=== PATIENT | female | born 1945 | race Two or more races ===

== ENCOUNTER 2023-03-24 15:23 | Inpatient (IN) | payer MEDICARE, OTHER ==
[~2023-03-24] VITALS: Ht 152.4 cm; Wt 62.6 kg
[~2023-03-24 15:23] MED LIST: ACET325T53 PO; APIX2.5T PO; ATOR40TA PO; BENZ200C53 PO; BISA10SU11 RC; CLOP75TA15 PO; CRAN425C6 PO; DOCU-141 PO; EXEN2AUT SQ; FAMO20TA8 PO; FURO-145 PO; GLIP5TAB13 PO; INSU100I26 SQ; INSU100I4 SQ; LOSA25TA27 PO; NATE60TA4 PO; NUT.237L28 PO; OMEG1CAP PO; SENN-261 PO
[2023-03-24] MEDS ORDERED: ONDANSETRON HCL/PF 4 MG/2 ML VIAL ONE (16:07)
[2023-03-24 16:15] LABS: BASOPHILS # (AUTO) 0.1 K/uL (0.0-0.2); BASOPHILS % (AUTO) 0.3 % (0.0-2.0); LYMPHOCYTES # (AUTO) 1.5 K/uL (0.8-4.8); LYMPHOCYTES % (AUTO) 7.5 % (20.0-44.0); MEAN CORPUSCULAR HEMOGLOBIN 18 PG (26.0-33.0); MEAN CORPUSCULAR HGB CONC 29 g/dl (31.0-36.0); MEAN CORPUSCULAR VOLUME 63 fL (82-100); MONOCYTES # (AUTO) 0.8 K/uL (0.1-1.30); NEUTROPHILS # (AUTO) 17.9 K/uL (1.8-8.9); NEUTROPHILS % (AUTO) 88.2 % (43.0-81.0); PLATELET COUNT (AUTO) 617 K/uL (150-450); RED BLOOD CELL COUNT(AUTO) 2.67 MIL/uL (4.0-5.2); RED CELL DISTRIBUTION WIDTH 20.7 % (11.5-15.0); WHITE BLOOD COUNT (AUTO) 20.3 K/uL (4.3-11.0)
[2023-03-24] MEDS ORDERED: IV NS 0.9% 1,000 ML BAG IV ONE (16:30)
[2023-03-24] MEDS ORDERED: ONDANSETRON HCL/PF - ER 4 MG/2 ML VIAL IV ONE (16:30)
[2023-03-24 16:35] LABS: CALCIUM, SERUM 8.9 mg/dL (8.5-10.1); CARBON DIOXIDE 22 mmol/L (21-32); CHLORIDE 98 mmol/L (98-107); CREATININE 2.5 mg/dL (0.6-1.3); GLUCOSE 297 mg/dL (74-106); POTASSIUM 4.8 mmol/L (3.5-5.1); SODIUM SERUM 132 mmol/L (136-145); UREA NITROGEN, BLOOD 41 mg/dL (7-18)
[2023-03-24 16:42] LABS: THYROID STIMULATING HORMONE 1.587 uIU/mL (0.358-3.74)
[2023-03-24 16:43] LABS: MAGNESIUM 2.4 mg/dL (1.8-2.4)
[2023-03-24 16:53] LABS: ALANINE AMINOTRANSFERASE 15 U/L (12-78); ALKALINE PHOSPHATASE 88 U/L (46-116); ASPARTATE AMINOTRANSFERASE 16 U/L (15-37); BILIRUBIN,DIRECT 0.2 mg/dL (0.0-0.2); BILIRUBIN,TOTAL 0.4 mg/dL (0.2-1.0); TOTAL PROTEIN, SERUM 8.4 g/dL (6.4-8.2)
[2023-03-24 17:01] LABS: INR 1.06 (0.91-1.10); PARTIAL THROMBOPLASTIN TIME 26.3 SEC (24.3-34.3); PROTHROMBIN TIME 11.2 SECS (9.2-11.1)
[2023-03-24 17:04] LABS: APPEARANCE,URINE CLOUDY (CLEAR); BILIRUBIN,URINE NEGATIVE (NEGATIVE); BLOOD, URINE 2+ Ery/uL (NEGATIVE); COLOR,URINE YELLOW (YELLOW); KETONES,URINE TRACE mg/dL (NEGATIVE); LEUKOCYTE ESTERASE ,URINE 2+ (NEGATIVE); NITRITE, URINE NEGATIVE (NEGATIVE); PROTEIN,URINE TRACE mg/dl (NEGATIVE); UGLUCOSE 3+ mg/dL (NEGATIVE); UROBILINOGEN,URINE 0.2 EU/dL (0.2)
[2023-03-24 17:07] LABS: HEMATOCRIT 17 % (33-45); HEMOGLOBIN 4.8 g/dL (11.5-14.8)
[2023-03-24] MEDS ORDERED: DICL100G26 TP (17:28)
[2023-03-24] MEDS ORDERED: METF-440 PO (17:28)
[2023-03-24] MEDS ORDERED: MIRT7.5T10 PO (17:28)
[2023-03-24] MEDS ORDERED: ESCI5TAB PO (17:28)
[2023-03-24] MEDS ORDERED: MELA3TAB41 PO (17:28)
[2023-03-24] MEDS ORDERED: NA P133E RC (17:28)
[2023-03-24] MEDS ORDERED: METO5TAB2 PO (17:28)
[2023-03-24] MEDS ORDERED: FERR325T23 PO (17:28)
[2023-03-24] MEDS ORDERED: EMPA10TA PO (17:28)
[2023-03-24] MEDS ORDERED: ASCO-340 PO (17:28)
[2023-03-24] MEDS ORDERED: ACET-2605 PO (17:28)
[2023-03-24] MEDS ORDERED: PANT40TA2 PO (17:28)
[2023-03-24] MEDS ORDERED: MAGN400O6 PO (17:28)
[2023-03-24] MEDS ORDERED: PHEN-704 PO (17:28)
[2023-03-24 17:53] LABS: ADD URINE CULTURE YES; BACTERIA,URINE 3+ /HPF (None Seen); RBC,URINE 21-50 /HPF (0-2); SQUAMOUS EPITHELIAL CELL,UR 0-2 /HPF (None Seen); WBC,URINE 21-50 /HPF (0-3)
[2023-03-24] MEDS ORDERED: ONDANSETRON HCL/PF 4 MG/2 ML VIAL IVP PRN (19:00)
[2023-03-24] MEDS ORDERED: ACETAMINOPHEN 650 MG/SUPP.RECT RC PRN (19:00)
[2023-03-24] MEDS ORDERED: CLONIDINE HCL 0.1 MG TABLET PO PRN (19:00)
[2023-03-24] MEDS ORDERED: MORPHINE SULFATE INJ 2 MG/ML DISP.SYRIN IV PRN (19:00)
[2023-03-24] MEDS ORDERED: DEXTROSE 50%-WATER 50 ML DISP.SYRIN IV PRN (19:00)
[2023-03-24 19:42] LABS: ANISOCYTOSIS 1+; EOSINOPHILS % (MANUAL) 3 % (0-4); LYMPHOCYTES % (MANUAL) 6 % (16-48); MONOCYTES % (MANUAL) 3 % (0-11.0); NEUTROPHILS % (MANUAL) 88 (42-76); PLATELET ESTIMATE ADEQUATE
[2023-03-24 19:43] LABS: ROULEAUX 1+
[2023-03-24] MEDS: CEFTRIAXONE 1 G in IV D5W 50 ML IV SCH (21:00)
[2023-03-24 21:30] VITALS: BP 110/44; TEMP 98.4; O2SAT 98
[2023-03-24] MEDS ORDERED: CEFTRIAXONE 1GM BAG (ER ONLY) 50 ML IV ONE (22:12)
[2023-03-24] MEDS: INSULIN REGULAR, HUMAN 100 UNIT/ML 3 ML VIAL SQ PRN (23:44)
[2023-03-24] MEDS: BLOOD SUGAR DIAGNOSTIC 1 EACH STRIP IN SCH (23:45)
[2023-03-25] VITALS (11 sets, daily range): BP systolic 94–135; BP diastolic 34–68; TEMP 97.5–99; O2SAT 97–99
[2023-03-25] MEDS: INSULIN REGULAR, HUMAN 100 UNIT/ML 3 ML VIAL SQ PRN ×4 (05:33→23:08)
[2023-03-25] MEDS: BLOOD SUGAR DIAGNOSTIC 1 EACH STRIP IN SCH ×4 (05:34→23:08)
[2023-03-25 06:55] LABS: BASOPHILS # (AUTO) 0.1 K/uL (0.0-0.2); BASOPHILS % (AUTO) 0.3 % (0.0-2.0); EOSINOPHILS # (AUTO) 0.1 K/uL (0.0-0.7); EOSINOPHILS % (AUTO) 0.9 % (0.0-6.0); HEMATOCRIT 23 % (33-45); LYMPHOCYTES # (AUTO) 1.8 K/uL (0.8-4.8); LYMPHOCYTES % (AUTO) 11.3 % (20.0-44.0); MEAN CORPUSCULAR HEMOGLOBIN 22 PG (26.0-33.0); MEAN CORPUSCULAR HGB CONC 31 g/dl (31.0-36.0); MEAN CORPUSCULAR VOLUME 72 fL (82-100); MONOCYTES # (AUTO) 1.3 K/uL (0.1-1.30); MONOCYTES % (AUTO) 7.8 % (2.0-12.0); NEUTROPHILS % (AUTO) 79.7 % (43.0-81.0); PLATELET COUNT (AUTO) 489 K/uL (150-450); RED BLOOD CELL COUNT(AUTO) 3.16 MIL/uL (4.0-5.2); RED CELL DISTRIBUTION WIDTH 29.4 % (11.5-15.0); WHITE BLOOD COUNT (AUTO) 16.3 K/uL (4.3-11.0)
[2023-03-25 07:04] LABS: CALCIUM, SERUM 8.2 mg/dL (8.5-10.1); CARBON DIOXIDE 25 mmol/L (21-32); CHLORIDE 103 mmol/L (98-107); CREATININE 2.2 mg/dL (0.6-1.3); GLUCOSE 157 mg/dL (74-106); POTASSIUM 4.1 mmol/L (3.5-5.1); SODIUM SERUM 138 mmol/L (136-145); UREA NITROGEN, BLOOD 43 mg/dL (7-18)
[2023-03-25] MEDS ORDERED: LOSARTAN POTASSIUM 25 MG TABLET PO SCH (09:00)
[2023-03-25] MEDS: PANTOPRAZOLE 40 MG VIAL IV SCH (09:12)
[2023-03-25] MEDS ORDERED: SOD FERRIC GLUC 125 MG in IV NS 0.9% 100 ML IV SCH (14:00)
[2023-03-25] MEDS: SOD FERRIC GLUC 125 MG in IV NS 0.9% 100 ML IV SCH (14:51)
[2023-03-25] MEDS: CEFTRIAXONE 1 G in IV D5W 50 ML IV SCH (21:23)
[2023-03-26] VITALS: BP 112/40; TEMP 97.5; O2SAT 96
[2023-03-26 04:00] VITALS: BP 108/40; TEMP 97.7; O2SAT 98
[2023-03-26] MEDS: INSULIN REGULAR, HUMAN 100 UNIT/ML 3 ML VIAL SQ PRN ×4 (05:17→23:40)
[2023-03-26] MEDS: BLOOD SUGAR DIAGNOSTIC 1 EACH STRIP IN SCH ×4 (05:18→23:40)
[2023-03-26 06:51] LABS: BASOPHILS # (AUTO) 0.1 K/uL (0.0-0.2); BASOPHILS % (AUTO) 0.6 % (0.0-2.0); EOSINOPHILS # (AUTO) 0.5 K/uL (0.0-0.7); EOSINOPHILS % (AUTO) 3.4 % (0.0-6.0); HEMATOCRIT 27 % (33-45); HEMOGLOBIN 8.3 g/dL (11.5-14.8); LYMPHOCYTES # (AUTO) 2.3 K/uL (0.8-4.8); LYMPHOCYTES % (AUTO) 15.9 % (20.0-44.0); MEAN CORPUSCULAR HEMOGLOBIN 23 PG (26.0-33.0); MEAN CORPUSCULAR HGB CONC 31 g/dl (31.0-36.0); MEAN CORPUSCULAR VOLUME 75 fL (82-100); MONOCYTES # (AUTO) 1.1 K/uL (0.1-1.30); MONOCYTES % (AUTO) 7.8 % (2.0-12.0); NEUTROPHILS # (AUTO) 10.5 K/uL (1.8-8.9); NEUTROPHILS % (AUTO) 72.3 % (43.0-81.0); PLATELET COUNT (AUTO) 386 K/uL (150-450); RED BLOOD CELL COUNT(AUTO) 3.57 MIL/uL (4.0-5.2); WHITE BLOOD COUNT (AUTO) 14.5 K/uL (4.3-11.0)
[2023-03-26 07:01] LABS: CREATINE KINASE, TOTAL 21 U/L (26-192)
[2023-03-26 07:05] LABS: ALANINE AMINOTRANSFERASE 13 U/L (12-78); ALBUMIN 2.8 g/dL (3.4-5.0); ALKALINE PHOSPHATASE 78 U/L (46-116); ASPARTATE AMINOTRANSFERASE 15 U/L (15-37); BILIRUBIN,TOTAL 0.5 mg/dL (0.2-1.0); CALCIUM, SERUM 8.5 mg/dL (8.5-10.1); CARBON DIOXIDE 23 mmol/L (21-32); CHLORIDE 103 mmol/L (98-107); CREATININE 1.8 mg/dL (0.6-1.3); GLUCOSE 121 mg/dL (74-106); MAGNESIUM 2.2 mg/dL (1.8-2.4); POTASSIUM 4.3 mmol/L (3.5-5.1); SODIUM SERUM 136 mmol/L (136-145); TOTAL PROTEIN, SERUM 7.6 g/dL (6.4-8.2); UREA NITROGEN, BLOOD 35 mg/dL (7-18)
[2023-03-26 08:00] VITALS: BP 112/41; TEMP 97.5; O2SAT 97
[2023-03-26] MEDS: PANTOPRAZOLE 40 MG VIAL IV SCH (08:55)
[2023-03-26 10:04] LABS: ANISOCYTOSIS 1+
[2023-03-26 10:05] LABS: PLATELET ESTIMATE ADEQUATE
[2023-03-26 10:06] LABS: OVALOCYTES 2+
[2023-03-26 12:00] VITALS: BP 115/50; TEMP 97.9; O2SAT 97
[2023-03-26] MEDS: SOD FERRIC GLUC 125 MG in IV NS 0.9% 100 ML IV SCH (14:16)
[2023-03-26 16:00] VITALS: BP 115/46; TEMP 97.7; O2SAT 96
[2023-03-26 20:00] VITALS: BP 114/53; TEMP 98.4; O2SAT 97
[2023-03-26] MEDS: CEFTRIAXONE 1 G in IV D5W 50 ML IV SCH (20:19)
[2023-03-27] VITALS: BP 105/53; TEMP 98.7; O2SAT 98
[2023-03-27 04:00] VITALS: BP 110/52; TEMP 98.2; O2SAT 98
[2023-03-27] MEDS: INSULIN REGULAR, HUMAN 100 UNIT/ML 3 ML VIAL SQ PRN ×3 (05:43→17:32)
[2023-03-27] MEDS: BLOOD SUGAR DIAGNOSTIC 1 EACH STRIP IN SCH ×3 (05:43→17:31)
[2023-03-27 05:45] LABS: BASOPHILS # (AUTO) 0.1 K/uL (0.0-0.2); BASOPHILS % (AUTO) 0.4 % (0.0-2.0); EOSINOPHILS # (AUTO) 0.5 K/uL (0.0-0.7); EOSINOPHILS % (AUTO) 3.8 % (0.0-6.0); HEMATOCRIT 26 % (33-45); HEMOGLOBIN 8.2 g/dL (11.5-14.8); LYMPHOCYTES # (AUTO) 2.1 K/uL (0.8-4.8); LYMPHOCYTES % (AUTO) 16.5 % (20.0-44.0); MEAN CORPUSCULAR HEMOGLOBIN 23 PG (26.0-33.0); MEAN CORPUSCULAR HGB CONC 31 g/dl (31.0-36.0); MEAN CORPUSCULAR VOLUME 76 fL (82-100); MONOCYTES # (AUTO) 1.1 K/uL (0.1-1.30); MONOCYTES % (AUTO) 8.1 % (2.0-12.0); NEUTROPHILS # (AUTO) 9.3 K/uL (1.8-8.9); NEUTROPHILS % (AUTO) 71.2 % (43.0-81.0); PLATELET COUNT (AUTO) 355 K/uL (150-450); RED CELL DISTRIBUTION WIDTH 30.4 % (11.5-15.0)
[2023-03-27 06:33] LABS: CARBON DIOXIDE 22 mmol/L (21-32); CHLORIDE 104 mmol/L (98-107); CREATININE 1.3 mg/dL (0.6-1.3); GLUCOSE 102 mg/dL (74-106); MAGNESIUM 2.2 mg/dL (1.8-2.4); PHOSPHORUS 2.8 mg/dL (2.5-4.9); POTASSIUM 3.6 mmol/L (3.5-5.1); SODIUM SERUM 135 mmol/L (136-145); UREA NITROGEN, BLOOD 21 mg/dL (7-18)
[2023-03-27 07:15] LABS: CALCIUM, SERUM 8.3 mg/dL (8.5-10.1)
[2023-03-27 08:00] VITALS: BP 134/40; TEMP 97.5; O2SAT 99
[2023-03-27 08:22] LABS: EOSINOPHILS % (MANUAL) 3 % (0-4); LYMPHOCYTES % (MANUAL) 19 % (16-48); MONOCYTES % (MANUAL) 7 % (0-11.0); NEUTROPHILS % (MANUAL) 71 (42-76); PLATELET ESTIMATE ADEQUATE
[2023-03-27 08:23] LABS: ANISOCYTOSIS 1+
[2023-03-27 08:24] LABS: HYPOCHROMASIA 1+; TEAR DROP CELLS 1+
[2023-03-27] MEDS: PANTOPRAZOLE 40 MG VIAL IV SCH (08:36)
[2023-03-27 12:00] VITALS: BP 128/39; TEMP 98.2; O2SAT 96
[2023-03-27] MEDS: SOD FERRIC GLUC 125 MG in IV NS 0.9% 100 ML IV SCH (14:46)
[2023-03-27 16:00] VITALS: BP 132/55; TEMP 98.3; O2SAT 98
[2023-03-27 20:51] VITALS: BP 132/41; TEMP 98.2; O2SAT 98
[2023-03-27] MEDS: CEFTRIAXONE 1 G in IV D5W 50 ML IV SCH (20:56)
[2023-03-28 00:18] VITALS: BP 132/44; TEMP 98.4; O2SAT 98
[2023-03-28] MEDS: BLOOD SUGAR DIAGNOSTIC 1 EACH STRIP IN SCH ×5 (00:30→23:30)
[2023-03-28 04:38] VITALS: BP 127/79; TEMP 98.9; O2SAT 98
[2023-03-28 07:06] LABS: PTH, INTACT 26 pg/mL (15-65)
[2023-03-28 07:28] LABS: BASOPHILS % (AUTO) 0.4 % (0.0-2.0); EOSINOPHILS # (AUTO) 0.5 K/uL (0.0-0.7); EOSINOPHILS % (AUTO) 4.4 % (0.0-6.0); HEMATOCRIT 30 % (33-45); HEMOGLOBIN 8.8 g/dL (11.5-14.8); LYMPHOCYTES # (AUTO) 1.6 K/uL (0.8-4.8); LYMPHOCYTES % (AUTO) 14.9 % (20.0-44.0); MEAN CORPUSCULAR HEMOGLOBIN 23 PG (26.0-33.0); MEAN CORPUSCULAR HGB CONC 30 g/dl (31.0-36.0); MEAN CORPUSCULAR VOLUME 80 fL (82-100); MONOCYTES # (AUTO) 0.9 K/uL (0.1-1.30); NEUTROPHILS # (AUTO) 7.7 K/uL (1.8-8.9); NEUTROPHILS % (AUTO) 72.3 % (43.0-81.0); PLATELET COUNT (AUTO) 353 K/uL (150-450); RED BLOOD CELL COUNT(AUTO) 3.74 MIL/uL (4.0-5.2); RED CELL DISTRIBUTION WIDTH 30.8 % (11.5-15.0); WHITE BLOOD COUNT (AUTO) 10.7 K/uL (4.3-11.0)
[2023-03-28 08:00] VITALS: BP 133/40; TEMP 98; O2SAT 98
[2023-03-28] MEDS: PANTOPRAZOLE 40 MG VIAL IV SCH (08:09)
[2023-03-28 08:21] LABS: CALCIUM, SERUM 8.5 mg/dL (8.5-10.1); CREATININE 1.1 mg/dL (0.6-1.3); MAGNESIUM 2.1 mg/dL (1.8-2.4); PHOSPHORUS 2.9 mg/dL (2.5-4.9); POTASSIUM 3.5 mmol/L (3.5-5.1)
[2023-03-28 12:00] VITALS: BP 149/40; TEMP 97.9; O2SAT 97
[2023-03-28 13:07] LABS: *SPE A/G RATIO 0.7 (0.7-1.7); *SPE ALBUMIN 2.8 g/dL (2.9-4.4); *SPE ALPHA-1-GLOBULIN 0.3 g/dL (0.0-0.4); *SPE ALPHA-2-GLOBULIN 0.7 g/dL (0.4-1.0); *SPE BETA GLOBULIN 1.2 g/dL (0.7-1.3); *SPE GLOBULIN, TOTAL 4.1 g/dL (2.2-3.9); *SPE M-SPIKE Not Observed g/dL (Not Observed); *SPE PROTEIN TOTAL 6.9 g/dL (6.0-8.5); *SPEGAMMA GLOBULIN 1.9 g/dL (0.4-1.8)
[2023-03-28 16:00] VITALS: BP 127/43; TEMP 98.7; O2SAT 98
[2023-03-28] MEDS: SOD FERRIC GLUC 125 MG in IV NS 0.9% 100 ML IV SCH (16:06)
[2023-03-28] MEDS: INSULIN REGULAR, HUMAN 100 UNIT/ML 3 ML VIAL SQ PRN (17:28)
[2023-03-28 20:35] VITALS: BP 137/41; TEMP 98.4; O2SAT 98
[2023-03-28] MEDS: CEFTRIAXONE 1 G in IV D5W 50 ML IV SCH (21:09)
[2023-03-29 00:23] VITALS: BP 132/48; TEMP 98.5; O2SAT 98
[2023-03-29 04:00] VITALS: BP 130/49; TEMP 98.3; O2SAT 98
[2023-03-29] MEDS: BLOOD SUGAR DIAGNOSTIC 1 EACH STRIP IN SCH ×3 (05:09→18:17)
[2023-03-29 08:00] VITALS: BP 116/45; TEMP 97.6; O2SAT 96
[2023-03-29] MEDS: PANTOPRAZOLE 40 MG VIAL IV SCH (09:40)
[2023-03-29 12:00] VITALS: BP 110/47; TEMP 97.6; O2SAT 96
[2023-03-29] MEDS: INSULIN REGULAR, HUMAN 100 UNIT/ML 3 ML VIAL SQ PRN (12:31)
[2023-03-29] MEDS: SOD FERRIC GLUC 125 MG in IV NS 0.9% 100 ML IV SCH (14:53)
[2023-03-29 16:00] VITALS: BP_SYST 114; BP_SYST 123; BP_DIAS 48; BP_DIAS 71; TEMP 97.7; O2SAT 95; O2SAT 98
[2023-03-29 20:00] VITALS: BP_SYST 131; BP_SYST 136; BP_DIAS 36; BP_DIAS 45; TEMP 98.9; TEMP 99.7; O2SAT 98
[2023-03-29] MEDS: CEFTRIAXONE 1 G in IV D5W 50 ML IV SCH (21:10)
[2023-03-30 01:19] VITALS: BP 124/47; TEMP 98.1; O2SAT 98
[2023-03-30 04:00] VITALS: BP 120/50; TEMP 98.1; O2SAT 98
[2023-03-30] MEDS: BLOOD SUGAR DIAGNOSTIC 1 EACH STRIP IN SCH ×5 (06:00→22:04)
[2023-03-30 08:00] VITALS: BP 118/65; TEMP 98.1; O2SAT 98
[2023-03-30] MEDS: PANTOPRAZOLE 40 MG VIAL IV SCH (08:33)
[2023-03-30 12:00] VITALS: BP 135/45; TEMP 98.2; O2SAT 97
[2023-03-30] MEDS ORDERED: LIDOCAINE HCL/MPF 1% 30 ML VIAL IJ ONE (13:00)
[2023-03-30] MEDS ORDERED: FENTANYL PF 100MCG/2ML AMPUL ONE (14:02)
[2023-03-30] MEDS: SOD FERRIC GLUC 125 MG in IV NS 0.9% 100 ML IV SCH (15:23)
[2023-03-30 16:00] VITALS: BP 140/56; TEMP 97.4; O2SAT 95
[2023-03-30] MEDS: INSULIN REGULAR, HUMAN 100 UNIT/ML 3 ML VIAL SQ PRN ×2 (18:22→22:05)
[2023-03-30 20:00] VITALS: BP 137/54; TEMP 97.5; O2SAT 95
[2023-03-30] MEDS: CEFTRIAXONE 1 G in IV D5W 50 ML IV SCH (20:16)
[2023-03-30] MEDS ORDERED: DEXTROSE 50%-WATER 50 ML DISP.SYRIN IV PRN (21:00)
[2023-03-31] VITALS: BP 115/54; TEMP 97.7; O2SAT 99
[2023-03-31 04:00] VITALS: BP 129/44; TEMP 97.9; O2SAT 99
[2023-03-31] MEDS: INSULIN REGULAR, HUMAN 100 UNIT/ML 3 ML VIAL SQ PRN ×3 (07:55→17:13)
[2023-03-31] MEDS: BLOOD SUGAR DIAGNOSTIC 1 EACH STRIP IN SCH ×3 (07:55→17:12)
[2023-03-31 08:00] VITALS: BP 133/45; TEMP 97.9; O2SAT 97
[2023-03-31] MEDS ORDERED: PANTOPRAZOLE 40 MG TABLET.DR PO SCH (09:00)
[2023-03-31 12:00] VITALS: BP 114/47; TEMP 97.9; O2SAT 99
[2023-03-31 16:00] VITALS: BP 129/59; TEMP 98.6; O2SAT 100
== END 2023-03-31 18:45 | DRG 853 ==
LOC: ER 15:23 → TELE-TD 20:41 → TELE1 03-25 09:40
PROVIDERS: ADMIT Legal Medicine; ATTEND Legal Medicine
PROC: 30233N1 Transfusion of Nonautologous Red Blood Cells into Peripheral Vein, Percutaneous Approach (ICD-10-PCS; 2023-03-24)
PROC: 0DB98ZX Excision of Duodenum, Via Natural or Artificial Opening Endoscopic, Diagnostic (ICD-10-PCS; principal; 2023-03-26)
PROC: 0JPT0PZ Removal of Cardiac Rhythm Related Device from Trunk Subcutaneous Tissue and Fascia, Open Approach (ICD-10-PCS; 2023-03-30)
PROC: 0JH606Z Insertion of Pacemaker, Dual Chamber into Chest Subcutaneous Tissue and Fascia, Open Approach (ICD-10-PCS; 2023-03-30)
DX: A41.9 Sepsis, unspecified organism (principal); G92.8 Other toxic encephalopathy; N17.0 Acute kidney failure with tubular necrosis; I13.0 Hypertensive heart and chronic kidney disease with heart failure and stage 1 through stage 4 chronic kidney disease, or unspecified chronic kidney disease; N39.0 Urinary tract infection, site not specified; E87.1 Hypo-osmolality and hyponatremia; D62 Acute posthemorrhagic anemia; I50.9 Heart failure, unspecified; Z66 Do not resuscitate; Z20.822 Contact with and (suspected) exposure to COVID-19; E11.22 Type 2 diabetes mellitus with diabetic chronic kidney disease; N18.9 Chronic kidney disease, unspecified; Z88.6 Allergy status to analgesic agent; Z91.041 Radiographic dye allergy status; Z79.84 Long term (current) use of oral hypoglycemic drugs; Z79.02 Long term (current) use of antithrombotics/antiplatelets; Z79.4 Long term (current) use of insulin; Z79.01 Long term (current) use of anticoagulants; Z79.899 Other long term (current) drug therapy; Z95.0 Presence of cardiac pacemaker; M81.0 Age-related osteoporosis without current pathological fracture; M19.90 Unspecified osteoarthritis, unspecified site; Z86.73 Personal history of transient ischemic attack (TIA), and cerebral infarction without residual deficits; F03.90 Unspecified dementia, unspecified severity, without behavioral disturbance, psychotic disturbance, mood disturbance, and anxiety; D50.9 Iron deficiency anemia, unspecified; D17.79 Benign lipomatous neoplasm of other sites; E78.5 Hyperlipidemia, unspecified; I25.10 Atherosclerotic heart disease of native coronary artery without angina pectoris; I25.5 Ischemic cardiomyopathy; K29.70 Gastritis, unspecified, without bleeding; K57.30 Diverticulosis of large intestine without perforation or abscess without bleeding; K80.20 Calculus of gallbladder without cholecystitis without obstruction; I49.5 Sick sinus syndrome; I48.91 Unspecified atrial fibrillation
CPT/HCPCS: 36415; 71045-TC; 76770-TC; 80048-TC; 80053-TC; 80076-TC; 81001; 82550-TC; 82962-TC; 83735-TC; 83880; 83970; 84100-TC; 84155; 84165; 84443-TC; 84484-TC; 85025-TC; 85730-TC; 86850-TC; 87081-TC; 87086-TC; 88305-TC; 93307-TC; A4223; A6402; C1882; C9113; G0378; J0690; J0696; J1644; J1815; J2405; J2704; J2765; J2916; J3010; J3490; J7030; J7040; J7050; J7060; P9016